=== PATIENT | male | born 1990 | race Caucasian/White ===

== ENCOUNTER 2019-06-14 12:35 | Emergency (ER) | payer SELFPAY ==
[~2019-06-14] VITALS: Ht 167.6 cm; Wt 68.0 kg
[2019-06-14] MEDS ORDERED: ACETAMINOPHEN 325MG TABLET ONE (12:47)
[2019-06-14] MEDS ORDERED: ACETAMINOPHEN 325MG TABLET PO STA (13:13)
[2019-06-14] MEDS ORDERED: IBUPROFEN 600MG TABLET PO STA (13:13)
[2019-06-14 14:30] VITALS: BP 114/76
== END 2019-06-14 14:44 | disposition home or self-care (01) ==
LOC: ER 12:35
DX: B34.9 Viral infection, unspecified (principal); R00.0 Tachycardia, unspecified; M79.10 Myalgia, unspecified site
CPT/HCPCS: 71045; 99283